=== PATIENT | female | born 1945 | race Hispanic/Latino ===

== ENCOUNTER 2023-07-21 06:50 | Day surgery (SDC) | payer MEDICARE ==
[2023-07-19 08:39] LABS: BASOPHILS # (AUTO) 0.04 K/uL (0.00-0.20); BASOPHILS % (AUTO) 0.6 % (0.0-5.0); EOSINOPHILS # (AUTO) 0.14 K/uL (0.00-0.70); IMMATURE GRANULOCYTE ABSOLUTE 0.03 K/uL (0-1); LYMPHOCYTES # (AUTO) 1.8 K/uL (1.0-4.8); LYMPHOCYTES % (AUTO) 25.6 % (21.0-51.0); MEAN CORPUSCULAR HEMOGLOBIN 28.3 pg (27.0-33.0); MEAN CORPUSCULAR HGB CONC 29.8 g/dL (32.0-36.0); MEAN CORPUSCULAR VOLUME 95.2 fL (79-99); MONOCYTES # (AUTO) 0.4 K/uL (0.1-1.0); NEUTROPHILS # (AUTO) 4.7 K/uL (1.8-7.7); NEUTROPHILS % (AUTO) 65.4 % (40.0-77.0); PLATELET COUNT (AUTO) 273 K/uL (130-400); RED BLOOD CELL COUNT(AUTO) 4.41 MIL/uL (4.00-5.50); RED CELL DISTRIBUTION WIDTH 13.3 % (11.0-15.5); WHITE BLOOD COUNT (AUTO) 7.1 K/uL (4.8-10.8)
[2023-07-19 08:46] LABS: CREATININE 0.9 mg/dL (0.5-1.5); POTASSIUM 4.1 mmol/L (3.5-5.1)
[2023-07-19 08:50] LABS: INR 0.94 (0.85-1.15)
[2023-07-19 08:51] VITALS: BP 164/74; PULSE 76; RESP 18
[2023-07-19 08:51] LABS: PARTIAL THROMBOPLASTIN TIME 30.5 SEC (26.3-35.5)
[2023-07-19 09:06] LABS: B-TYPE NATRIURETIC PEPTIDE 141 pg/mL (0-100)
[2023-07-21] VITALS (11 sets, daily range): BP systolic 107–218; BP diastolic 58–91; PULSE 67–95; RESP 14–22
[~2023-07-21] VITALS: Ht 144.8 cm; Wt 88.4 kg
[~2023-07-21 06:50] MED LIST: ATOR40TA69 PO; CALC-1125 PO; CHOL50009 PO; FURO40TA5 PO; LAMO150T6 PO; LOSA50TA64 PO; MECL-302 PO; METO-408 PO; MONT-39 PO; MULT-1265 PO; NITR0.4T50 SL; OMEP20CA12 PO
[2023-07-21 07:42] LABS: APPEARANCE,URINE CLOUDY (CLEAR); BILIRUBIN,URINE NEGATIVE (NEGATIVE); COLOR,URINE LIGHT-YELLOW (YELLOW); GLUCOSE, URINE (UA) NEGATIVE (NEGATIVE); KETONES,URINE NEGATIVE (NEGATIVE); LEUKOCYTE ESTERASE ,URINE 25 Leu/uL (NEGATIVE); NITRATE,URINE NEGATIVE (NEGATIVE); PROTEIN,URINE NEGATIVE (NEGATIVE); UROBILINOGEN,URINE 0.2 mg/dL (0.2-1.0)
[2023-07-21 07:58] LABS: ADD UA MICROSCOPIC YES
[2023-07-21 08:00] LABS: BACTERIA,URINE RARE /HPF (None Seen); MUCUS,URINE RARE LPF (None Seen); OTHER CASTS, URINE 1 /LPF (None Seen); SQUAMOUS EPITHELIAL CELL,UR FEW /HPF (0-2); UNCLASSIFIED CRYSTAL 3 /HPF (None Seen); YEAST,URINE BUDDING RARE /HPF (None Seen)
[2023-07-21] MEDS ORDERED: 0.9%NACL 1000ML 1,000 ML IV ONE (08:05)
[2023-07-21] MEDS ORDERED: LIDOCAINE HCL 400MG/20ML VIAL ONE (10:12)
[2023-07-21] MEDS ORDERED: IODIXANOL 320 MG/ML 100 ML VIAL ONE (10:12)
[2023-07-21] MEDS ORDERED: HEPARIN 10,000 UNIT/10ML (1,000 UNIT/ML) VIAL ONE (10:12)
[2023-07-21] MEDS ORDERED: MIDAZOLAM HCL 1 MG/ML 2ML VIAL ONE ×2 (10:20→10:30)
[2023-07-21] MEDS ORDERED: MEPERIDINE-PF 25 MG/ML SYG ONE ×2 (10:20→10:29)
[2023-07-21] MEDS ORDERED: NITROGLYCERIN 50MG VIAL ONE (10:22)
[2023-07-21] MEDS ORDERED: ASPIRIN 325MG EC TAB PO ONE (10:22)
[2023-07-21] MEDS ORDERED: IOHEXOL-350 75 ML VIAL IV ONE ×2 (10:29→11:03)
[2023-07-21] MEDS ORDERED: IOHEXOL 350 MG/ML 100ML INFUS..BTL IV ONE ×2 (10:29→11:03)
[2023-07-21] MEDS ORDERED: 0.9%NACL 1000ML 1,000 ML IV SCH (12:00)
== END 2023-07-21 18:10 | disposition home or self-care (01) ==
LOC: DAH 06:50
PROVIDERS: ATTEND Internal Medicine Cardiovascular Disease
DX: I63.89 Other cerebral infarction (principal); I65.22 Occlusion and stenosis of left carotid artery; Q25.49 Other congenital malformations of aorta; I11.0 Hypertensive heart disease with heart failure; I50.9 Heart failure, unspecified; K21.9 Gastro-esophageal reflux disease without esophagitis; Z79.01 Long term (current) use of anticoagulants; Z79.899 Other long term (current) drug therapy; Z90.49 Acquired absence of other specified parts of digestive tract; Z98.890 Other specified postprocedural states
CPT/HCPCS: 80048; 83880; 85025; 85610; 85730; 71045; 93005; 36223; 36226; 87088; 81001; 36415; 36225; C1769; C1894; C1760; J3490 ×2; J7030; J2250 ×2; J2175 ×2; J1644 ×2; Q9967 ×3; A4215; A4335; A4222; A4221; A4663; A4216; A4606; Q9965 ×3; A4520; A4223 ×3; A4554; 75716; 99156; 99157